=== PATIENT | female | born 1950 | race Caucasian/White ===

== ENCOUNTER 2021-12-17 22:41 | Inpatient (IN) ==
[2021-12-17] MEDS ORDERED: MECLIZINE HCL 25 MG TAB PO STA (23:37)
--- NOTE | 2021-12-17 23:42 | Emergency Department Note ---
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 Patient was on able to give an initial sample and started to drink a lot of water. Patient states that she gave a sample and then went home and when she was getting out of her car she states that she felt lightheaded and dizzy. She states that this typically occurs when her blood sugar goes low. She also states that she has been taking her medicine and has eaten today. Patient denies headache blurred vision slurred speech nausea vomiting. Patient states that the dizziness is actually improved since she presented to the department. Home Medications Medication Instructions Recorded Confirmed Type coenzyme Q10 100 mg capsule 100 mg PO QAM 12/15/19 12/17/21 History (CoQ-10) lisinopril 20 mg tablet 20 mg PO DAILY 12/15/19 12/17/21 History loratadine 10 mg tablet 10 mg PO QAM 12/15/19 12/17/21 History metformin 1,000 mg tablet 1,000 mg PO QAM 12/15/19 12/17/21 History jcigfuuy-juz-tdnsy ac 400 1 tab PO QAM 12/15/19 12/17/21 History mcg-calcium carb 500 mg-vit K1 20 mcg tablet (Women's 50 Plus Daily Formula) omega-3 fatty acids-fish oil 360 1 cap PO QPM 12/15/19 12/17/21 History mg-1,200 mg capsule (Fish Oil) pravastatin 20 mg tablet 20 mg PO QPM 12/15/19 12/17/21 History apple cider vinegar 300 mg tablet 300 mg PO BID 12/17/21 12/17/21 History glimepiride 2 mg tablet 2 mg PO QAM 12/17/21 12/17/21 History metformin 500 mg tablet 500 mg PO QPM 12/17/21 12/17/21 History Allergies Allergy/AdvReac Type Severity Reaction Status Date / Time kiwi Allergy DIFFICULTY Verified 12/17/21 23:25 SWALLOWING,"THROAT FEELS FUZZY" Penicillins Allergy RASH Verified 12/17/21 23:25 Past Med/Surg History Social History Smoking Status: Former smoker Preferred Language: Syrian Feels Safe at Home: Yes Immunizations: Past medical history includes diabetes, hypertension Review of Systems A total of 10 systems reviewed and were otherwise negative Constitutional: no fever Respiratory: no cough Cardiovascular: no chest pain Gastrointestinal: no abdominal pain Neurologic: + dizziness Physical Exam Vital Signs Vital Signs - 24 hr 12/17/21 23:15 12/18/21 00:46 12/18/21 01:00 Temperature 36.5 C Temperature Source Oral Pulse Rate 81 83 71 Respiratory Rate 12 18 13 Respiratory Effort / Characteristics Non-Labored Spontaneous Respiratory Depth Normal Blood Pressure 141/79 H 147/92 H 145/83 H Blood Pressure Mean 99 110 103 Pulse Oximetry 98 99 98 Oxygen Delivery Method Room Air Room Air Room Air Sepsis New/Unexplained Change in Mental Status N/A Sepsis Action Taken by Nursing No Action Required 12/18/21 02:00 Temperature Temperature Source Pulse Rate 69 Respiratory Rate 19 Respiratory Effort / Characteristics Respiratory Depth Blood Pressure 135/74 Blood Pressure Mean 94 Pulse Oximetry 99 Oxygen Delivery Method Room Air Sepsis New/Unexplained Change in Mental Status Sepsis Action Taken by Nursing VITAL SIGNS - Vital signs and nursing notes were reviewed. GENERAL - No acute distress. Communicates well with provider and answers questions appropriately. SKIN - Without rashes. HEAD - NC/AT. EYES - PERRL with EOMI bilaterally. Sclera anicteric. Palpebral conjunctiva pink and moist with no injection noted. EARS - No deformities of external structures noted on gross examination bilaterally. NOSE - Midline and without cyanosis. No epistaxis or purulent drainage noted. Septum midline without deviation or septal hematoma noted. MOUTH/OROPHARYNX - Without perioral cyanosis. Buccal mucosa pink Tongue midline with equal elevation of palate bilaterally. NECK - Neck with FROM. Supple to palpation. . LUNGS - Chest wall symmetric without accessory muscle use, intercostals retractions, or central cyanosis. Normal vesicular breath sounds CTA B/L. No wheezes, rales, or rhonchi appreciated. CARDIAC - RRR with S1/S2. No murmur, rubs, or gallops appreciated. ABDOMEN - Abdominal contour soft without pulsations or visible masses. BS normoactive all four quadrants. No tenderness, palpable masses, hepatosplenomegaly, or ascites noted. EXTREMITIES - No clubbing or peripheral cyanosis. No pretibial edema present. +5/5 strength noted in UE/LE bilaterally. NEUROLOGIC - Cranial nerves II through XII grossly intact. NIH 0; nonfocal PSYCH - A&Ox3 and cooperates fully with examiner. Pt is very pleasant and interacts well with examiner. Course Course Patient is resting in no distress was started on IV fluids, has a sodium of 119, there is been no seizure activity and no significant alteration in mental status at 143am Administered Medications Discontinued Medications Sodium Chloride (Nss 1000ml) 1,000 mls @ 999 mls/hr IV .Q1H1M ONE Stop: 12/18/21 02:06 Last Infusion: 12/18/21 02:37 Dose: 0 mls/hr Documented by: [id number] Admin: 12/18/21 01:11 Dose: 999 mls/hr Documented by: [id number] Meclizine HCl (Meclizine Hcl 25 Mg Tab) 25 mg PO NOW STA Stop: 12/17/21 23:38 Last Admin: 12/17/21 23:55 Dose: 25 mg Documented by: [id number] Critical Care Time Critical Care Time: Yes Total Critical Care Time: 35 Critical care time is 35 minutes for patient with dizziness and hyponatremia with the potential for status. Patient was reevaluated multiple times, consult with hospitalist, review of old records Medical Decision Making Medical Records Attestation: I reviewed the patient's medical records. Laboratory Data Attestation: I reviewed the patient's lab results. Result diagrams: 12/17/21 23:57 12/17/21 23:57 Lab Results 12/17/21 12/17/21 12/17/21 Range/Units 23:11 23:57 23:57 WBC 6.50 (4.8-10.8) K/uL RBC 4.19 L (4.2-5.4) M/uL Hgb 11.5 L (12.0-16.0) g/dL Hct 33.5 L (37-47) % MCV 80.0 (80-100) fL MCH 27.4 (25-34) pg MCHC 34.3 (32-36) g/dL RDW Std Deviation 37.4 (36.4-46.3) fL RDW Coeff of Bonnie 12.9 (11.5-14.5) % Plt Count 214 (130-400) K/uL MPV 8.7 (7.4-10.4) fL Immature Gran % (Auto) 0.2 % Neut % (Auto) 68.3 % Lymph % (Auto) 23.2 % [place] % (Auto) 6.9 % Eos % (Auto) 1.2 % Baso % (Auto) 0.2 % Neut # (Auto) 4.44 (1.4-6.5) K/uL Lymph # (Auto) 1.51 (1.2-3.4) K/uL [place] # (Auto) 0.45 (0.11-0.59) K/uL Eos # (Auto) 0.08 (0-0.5) K/uL Baso # (Auto) 0.01 (0-0.2) K/uL Immature Gran # (Auto) 0.01 (0.00-0.02) K/uL Sodium 119 L* (136-145) mmol/L Potassium 4.0 (3.5-5.1) mmol/L Chloride 86 L (98-107) mmol/L Carbon Dioxide 24 (21-32) mmol/L Anion Gap 9 (3-11) BUN 19 (6-23) mg/dl Creatinine 0.76 (0.6-1.2) mg/dl Est Cr Clr Drug Dosing 73.1 ml/min Est GFR ( Amer) 91.5 ml/min Est GFR (Non-Af Amer) 78.9 ml/min BUN/Creatinine Ratio 25.0 H (10-20) Glucose 129 H (70-99(Fasting)) mg/dl POC Glucose 166 H (70-99) mg/dl Calcium 8.7 (8.5-10.1) mg/dl Total Bilirubin 0.7 (0.2-1.0) mg/dl AST 17 (13-39) U/L ALT 11 (7-52) U/L Alkaline Phosphatase 49 (34-104) U/L Troponin I < 0.03 (0-0.04) ng/ml Total Protein 6.2 (6.0-8.3) gm/dl Albumin 4.0 (3.4-5.0) gm/dl Globulin 2.2 L (2.5-4.0) gm/dl Albumin/Globulin Ratio 1.8 (0.9-2) Imaging Data Radiologist's Impression: CT HEAD: No ICH, mass effect or edema. No evidence of acute cortical stroke. No space-occupying lesion. Mild involutional changes. Visualized sinuses and mastoid air cells are clear. Radiologist: Carlotta Salcedo MD ECG Data Attestation: I personally reviewed and interpreted this ECG as follows: Additional Comments: EKG interpreted by me sinus rhythm rate of 85 nonspecific T wave abnormality no obvious ST segment elevation or depression normal intervals normal axis MDM Narrative Medicall decision making differential diagnosis includes vertigo, metabolic derangement, dehydration, hypoglycemia; will check labs, ct Impression & Plan Acute hyponatremia, Dizziness Discharge Plan Visit Data Chief Complaint: Dizziness ED Provider: Jason Lentz Discharge Problem: Acute hyponatremia, Dizziness Patient Disposition: Admitted As Inpatient Forms Stand Alone Forms: My [facility] Prescriptions Prescriptions: No Action lisinopril 20 mg Tablet 20 mg PO DAILY RF: 0 metformin 1,000 mg Tablet 1,000 mg PO QAM RF: 0 pravastatin 20 mg Tablet 20 mg PO QPM RF: 0 loratadine 10 mg Tablet 10 mg PO QAM RF: 0 coenzyme Q10 [CoQ-10] 100 mg Capsule 100 mg PO QAM RF: 0 Women's 50 Plus Daily Formula 400 mcg-500 mg calcium-20 mcg Tablet 1 tab PO QAM RF: 0 omega-3 fatty acids-fish oil [Fish Oil] 360-1,200 mg Capsule 1 cap PO QPM RF: 0 glimepiride 2 mg tablet 2 mg PO QAM RF: 0 metformin 500 mg tablet 500 mg PO QPM RF: 0 apple cider vinegar 300 mg Tablet 300 mg PO BID RF: 0 Referrals Referrals: Silverio Castillo DO [Outside Practitioners] -
[2021-12-18 00:10] LABS: Basophils # (auto) 0.01 K/uL (0-0.2); Basophils % (auto) 0.2 %; Eosinophils # (auto) 0.08 K/uL (0-0.5); Eosinophils % (auto) 1.2 %; Hematocrit (blood only) 33.5 % (37-47); Hemoglobin 11.5 g/dL (12.0-16.0); Immature Granulocytes # (auto) 0.01 K/uL (0.00-0.02); Immature Granulocytes % (auto) 0.2 %; Lymphocytes # (auto) 1.51 K/uL (1.2-3.4); Lymphocytes % (auto) 23.2 %; Mean Corpuscular Hemoglobin 27.4 pg (25-34); Mean Corpuscular Hgb Conc 34.3 g/dL (32-36); Mean Platelet Volume 8.7 fL (7.4-10.4); Monocytes # (auto) 0.45 K/uL (0.11-0.59); Monocytes % (auto) 6.9 %; Neutrophils # (auto) 4.44 K/uL (1.4-6.5); Neutrophils % (auto) 68.3 %; Platelet Count 214 K/uL (130-400); RDW Coefficient of Variation 12.9 % (11.5-14.5); RDW Standard Deviation 37.4 fL (36.4-46.3); Red Blood Count 4.19 M/uL (4.2-5.4)
[2021-12-18 01:03] LABS: Alanine Aminotransferase 11 U/L (7-52); Albumin Globulin Ratio 1.8 (0.9-2); Alkaline Phosphatase 49 U/L (34-104); Anion Gap 9 (3-11); Aspartate Aminotransferase 17 U/L (13-39); Bilirubin,Total 0.7 mg/dl (0.2-1.0); Blood Urea Nitrogen 19 mg/dl (6-23); Calcium 8.7 mg/dl (8.5-10.1); Carbon Dioxide 24 mmol/L (21-32); Chloride 86 mmol/L (98-107); Creatinine Clr Calc Pharmacy 73.1 ml/min; Est GFR (African American) 91.5 ml/min; Est GFR (Non-African American) 78.9 ml/min; Globulin 2.2 gm/dl (2.5-4.0); Glucose 129 mg/dl (70-99(Fasting)); Sodium 119 mmol/L (136-145); Total Protein 6.2 gm/dl (6.0-8.3)
[2021-12-18] MEDS ORDERED: SODIUM CHLORIDE 0.9% 1000ML 1,000 ML IV ONE (01:06)
[2021-12-18 01:58] LABS: Troponin I < 0.03 ng/ml (0-0.04)
--- NOTE | 2021-12-18 03:21 | History & Physical Report ---
Date of Service December 18, 2021 Assessment & Plan (1) Acute hyponatremia: (2) Dizziness: (3) HTN (hypertension): (4) DM2 (diabetes mellitus, type 2): (5) HLD (hyperlipidemia): Plan: Anyi Bateman is a 71-year-old female with PMH of HTN and DM2 here for dizziness and n/v. Admitted due to hyponatremia. Hyponatremia Na at 119 on admission In the setting of consumption of large amounts of water Per chart review, patient had one prior BMP showing a sodium of 131 Per patient, she had been on salt tabs in the past but had stopped taking these due to side effects Serum osmolality low at 261, urine osmolality at 243 Urine sodium and creatinine ordered to further elucidate additional potential causes Expect that sodium is chronically low, and her excessive water intake caused an acute worsening of her hyponatremia As she does not currently have neurologic symptoms, will hold off on hypertonic saline administration Repeat BMP every 4 hours If sodium not improving on its own with avoidance of free water, can consider small hypertonic saline boluses Hypertension Hold lisinopril due to hyponatremia BP well controlled at this time DM2 Hold home medications SSI while admitted Hyperlipidemia Continue home pravastatin DVT prophylaxis: Lovenox SQ Dispo: Admit to telemetry Diet: Heart healthy, DM 2 CODE STATUS: Full History of Present Illness Primary Care Provider: Ml Sotomaoyr Anyi Bateman is a 71-year-old female with PMH of HTN and DM2 here for dizziness since this morning. 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 She says that initially patient was unable to give enough urine for the test -- according to the policies, she had to stay until she could provide said sample. As such, patient states that she drank large amounts of water for about an hour -- says she refilled a 6-8oz cup constantly. She then gave the sample and went home. Upon arrival at home, she started feeling dizzy. Says she vomited multiple times. Denies weakness, numbness, confusion, focal neuro deficits, fever, chills, abdominal pain, chest pain, palpitations, shortness of breath. Upon arrival to the ED, patient had labs significant for sodium of 119 (only prior sodium in our system showed 131 2 years ago). She had CT head showing no ICH, mass-effect, or edema. No evidence of acute cortical stroke. No space- occupying lesion. Mild involutional changes. Patient does say that at one point a few years ago she was prescribed sodium tablets by her PCP and was taking them for a while, but she decided to stop as they caused unwanted side effects for her, specifically a bad taste in her mouth. At this time, patient feels overall better. Somewhat tired, but dizziness has improved and she is no longer nauseous. Allergies Allergy/AdvReac Type Severity Reaction Status Date / Time kiwi Allergy DIFFICULTY Verified 12/17/21 23:25 SWALLOWING,"THROAT FEELS FUZZY" Penicillins Allergy RASH Verified 12/17/21 23:25 Home Medications Medication Instructions Recorded Confirmed Type coenzyme Q10 100 mg capsule 100 mg PO QAM 12/15/19 12/17/21 History (CoQ-10) lisinopril 20 mg tablet 20 mg PO DAILY 12/15/19 12/17/21 History loratadine 10 mg tablet 10 mg PO QAM 12/15/19 12/17/21 History metformin 1,000 mg tablet 1,000 mg PO QAM 12/15/19 12/17/21 History bfuynxfz-gfn-lqxuc ac 400 1 tab PO QAM 12/15/19 12/17/21 History mcg-calcium carb 500 mg-vit K1 20 mcg tablet (Women's 50 Plus Daily Formula) omega-3 fatty acids-fish oil 360 1 cap PO QPM 12/15/19 12/17/21 History mg-1,200 mg capsule (Fish Oil) pravastatin 20 mg tablet 20 mg PO QPM 12/15/19 12/17/21 History apple cider vinegar 300 mg tablet 300 mg PO BID 12/17/21 12/17/21 History glimepiride 2 mg tablet 2 mg PO QAM 12/17/21 12/17/21 History metformin 500 mg tablet 500 mg PO QPM 12/17/21 12/17/21 History Past Med/Surg History Social History Smoking Status: Never smoker Hx Alcohol Use: No Hx Substance Use: No Preferred Language: Serbian Communication Ability: Effective 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 NAD. HEENT: PERRL, EOMI. Moist mucous membranes. NECK: No JVD. No lymphadenopathy. CHEST/LUNGS: CTAB A/P. No crackles, wheezes, rales, rhonchi. HEART: RRR. No m/g/r. No carotid bruits. ABDOMEN: NT/ND, soft. BS+ x4 EXTREMITIES: No cyanosis, no clubbing, no edema SKIN: Warm and dry. No rashes or lesions. PSYCHIATRIC: Euthymic affect, no SI, no pressured speech, no hallucinations NEUROLOGIC: No FND. 5/5 strength in all 4 extremities. CN II-XII grossly intact. Results & Data Results & Data ([facility]) Vital Signs (Past 12 Hours) Vital Signs Temp Pulse Resp BP Pulse Ox 12/18/21 02:00 69 19 135/74 99 12/18/21 01:00 71 13 145/83 H 98 12/18/21 00:46 83 18 147/92 H 99 12/17/21 23:15 36.5 C 81 12 141/79 H 98 Code Status & VTE Plan VTE Prophylaxis Plan VTE Prophylaxis will be ordered: Yes Supervising Physician Co-Signing Physician Notes Attending addendum: I have physically seen this patient, have supervised the medical residents activities, and agree with the H&P unless as otherwise noted. Assessment and Plan: Hyponatremia- Sodium 119, serum osmolality 261, urine osmolality 243 Consistent with patient's report of drinking excessive amounts of water due to desire to be able to produce urine for a test at work Fluid restrict 1500 cc Sodium chloride tablets 1 g p.o. twice daily Serial BMP and magnesium levels every 4 hours Monitor for seizures, patient has had none at this point Diabetes mellitus- Hold glimepiride and Metformin Place on Accu-Cheks before meals and at bedtime with NovoLog coverage per scale Remaining orders and notations as noted Resident Activity Tracking Resident Involvement: Resident Care Provided Care Provided: Adult Hospital Medicine
[2021-12-18] MEDS ORDERED: ALUMINUM/MAGNESIUM SUSP 30 ML UDC PO PRN (04:51)
[2021-12-18] MEDS ORDERED: DC ALL PREVIOUSLY ORDERED DIABETES MEDS ONE (04:51)
[2021-12-18] MEDS ORDERED: MAGNESIUM HYDROXIDE SUSP 30 ML UDC PO PRN (04:51)
[2021-12-18] MEDS ORDERED: ACETAMINOPHEN 325 MG TAB PO PRN (04:51)
[2021-12-18] MEDS ORDERED: GLUCOSE 40% GEL 15 GM TUBE PO PRN (04:51)
[2021-12-18] MEDS ORDERED: POLYETHYLENE (MIRALAX) 17 GM PACK PO PRN (04:51)
[2021-12-18] MEDS ORDERED: GLUCOSE 10 TABS/TUBE PO PRN (04:51)
[2021-12-18] MEDS ORDERED: CARBOHYDRATES FOR HYPOGLYCEMIA PO PRN (04:51)
[2021-12-18] MEDS ORDERED: ONDANSETRON INJ 2 MG/ML 2 ML VIAL IV PRN (04:51)
[2021-12-18] MEDS ORDERED: DEXTROSE 50% 50 ML SYRINGE IV PRN (04:51)
[2021-12-18] MEDS ORDERED: GLUCAGON FOR INJ 1 MG VIAL SQ PRN (04:51)
[2021-12-18] MEDS ORDERED: ENOXAPARIN INJ 40 MG/0.4 ML SYR SQ SCH (06:00)
[2021-12-18 06:52] LABS: BUN Creatinine Ratio 22.5 (10-20); Calcium 8.5 mg/dl (8.5-10.1); Creatinine Clr Calc Pharmacy 77.3 ml/min; Est GFR (African American) 99.3 ml/min; Est GFR (Non-African American) 85.7 ml/min; Potassium 3.8 mmol/L (3.5-5.1)
--- NOTE | 2021-12-18 06:53 | CT Scan Report ---
CT SCAN OF THE BRAIN WITHOUT IV CONTRAST CLINICAL HISTORY: Dizziness. COMPARISON STUDY: No priors. TECHNIQUE: Unenhanced axial CT scan of the brain is performed from the vertex to the skull base. A do se lowering technique was utilized adhering to the principles of ALARA. CT DOSE: 614.27 mGy.cm FINDINGS: Brain parenchyma: There are age-related involutional changes noting minimal subcortical and perivent ricular microangiopathic change. There is no hemorrhage, mass effect, or evidence of acute territoria l ischemia by CT criteria. Galeano-white matter differentiation is preserved. No extra-axial fluid colle ction is seen. Ventricles, sulci, cisterns: Prominent secondary to involutional change. Intracranial vasculature: There is atherosclerotic calcification of the cavernous carotid and vertebr al arteries. Calvarium: Unremarkable. Sinuses and mastoids: The visualized paranasal sinuses are clear. The mastoid air cells are well pneu matized. Orbits: The bony orbits are grossly intact. There are bilateral ocular lens implants. IMPRESSION: There is no hemorrhage, mass effect, or evidence of acute territorial ischemia by CT mali ness. ACT 112: Negative or not required by law. Electronically signed by: Ezequiel Jimenez M.D. 12/18/2021 6:51 AM
[2021-12-18 07:07] LABS: Creatinine Urine Random 13.1 mg/dl
[2021-12-18] MEDS: INSULIN ASPART PER UNIT SC SCH ×2 (08:10→12:32)
[2021-12-18 09:00] LABS: BUN Creatinine Ratio 20.5 (10-20); Creatinine Clr Calc Pharmacy 75.2 ml/min; Est GFR (Non-African American) 82.9 ml/min; Potassium 3.6 mmol/L (3.5-5.1)
[2021-12-18] MEDS ORDERED: LORATADINE 10 MG TAB PO SCH (09:00)
[2021-12-18] MEDS ORDERED: CEROVITE ADV FORMULA TAB PO SCH (09:00)
[2021-12-18] MEDS ORDERED: INSULIN GLARGINE SOLOSTAR 100 UNITS/ML 3 ML PEN SC SCH (09:00)
[2021-12-18 13:17] LABS: BUN Creatinine Ratio 19.2 (10-20); Calcium 9.5 mg/dl (8.5-10.1); Creatinine Clr Calc Pharmacy 70.3 ml/min; Est GFR (African American) 88.6 ml/min; Est GFR (Non-African American) 76.5 ml/min
--- NOTE | 2021-12-18 16:15 | Discharge Summary ---
Date of Service December 18, 2021 Admission HPI Per Admitting Provider Anyi Bateman is a 71-year-old female with PMH of HTN and DM2 here for dizziness since this morning. 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 She says that initially patient was unable to give enough urine for the test -- according to the policies, she had to stay until she could provide said sample. As such, patient states that she drank large amounts of water for about an hour -- says she refilled a 6-8oz cup constantly. She then gave the sample and went home. Upon arrival at home, she started feeling dizzy. Says she vomited multiple times. Denies weakness, numbness, confusion, focal neuro deficits, fever, chills, abdominal pain, chest pain, palpitations, shortness of breath. Upon arrival to the ED, patient had labs significant for sodium of 119 (only prior sodium in our system showed 131 2 years ago). She had CT head showing no ICH, mass-effect, or edema. No evidence of acute cortical stroke. No space- occupying lesion. Mild involutional changes. Patient does say that at one point a few years ago she was prescribed sodium tablets by her PCP and was taking them for a while, but she decided to stop as they caused unwanted side effects for her, specifically a bad taste in her mouth. At this time, patient feels overall better. Somewhat tired, but dizziness has improved and she is no longer nauseous. Principal Diagnosis Acute hyponatremia Discharge Exam Constitutional WD/WN, vitals as above Eyes PERRL, conjunctivae normal, anicteric sclerae Neck trachea midline, no thyromegaly Respiratory normal respiratory effort, lungs clear to auscultation Cardiovascular RRR, no murmur, no edema Gastrointestinal (Abdomen) normal bowel sounds, soft, nontender, no hepatosplenomegaly Musculoskeletal Head/Neck/Chest: normocephalic and head atraumatic Extremities: strength 5/5 throughout Skin no rashes, warm and dry Neurologic deep tendon reflexes 2+ bilaterally and moves all extremities Psychiatric A+Ox3, euthymic affect Discharge Data Allergies Allergy/AdvReac Type Severity Reaction Status Date / Time kiwi Allergy DIFFICULTY Verified 12/17/21 23:25 SWALLOWING,"THROAT FEELS FUZZY" Penicillins Allergy RASH Verified 03/15/22 23:25 Consultations 12/18/21 03:10 ED Decision to Admit Stat Ordered Studies 12/17/21 23:37 CT head/brain wo con Urgent Hospital Course (1) Acute hyponatremia: (2) Dizziness: (3) HTN (hypertension): (4) DM2 (diabetes mellitus, type 2): (5) HLD (hyperlipidemia): Anyi Bateman is a 71-year-old female with PMH of HTN and DM2 here for dizziness and n/v. Admitted due to hyponatremia. Hyponatremia Na at 119 on admission, uptrending at the time of discharge In the setting of consumption of large amounts of water Per chart review, patient had one prior BMP showing a sodium of 131, patient in agreement of a chronic history of hyponatremia with baseline around 130-132 Per patient, she had been on salt tabs in the past but had stopped taking these due to bad taste -Patient placed on fluid restriction at 1500 mL Expect that sodium is chronically low, and her excessive water intake caused an acute worsening of her hyponatremia As she does not currently have neurologic symptoms, no hypertonic saline administration was done and patient's sodium was self-correcting which was evident by serum osmolality and urine osmolality Patient deemed stable and improving allowing her to be discharged home Hypertension Continue lisinopril DM2 Return to home regimen Hyperlipidemia Continue home pravastatin Dispo: Discharge home CODE STATUS: Full Total Time Total Time Spent Total Time Spent (In Minutes): 30 Discharge Plan Discharge Items Patient Disposition: Home - Self-Care Reason For Visit: DIZZINESS, VOMITING, HYPONATREMIA Discharge Diagnosis: Hyponatremia Activity: Per Instructions section Non-emergency contact: Primary Care Provider Call non-emergency contact if: you have any medication questions and your symptoms worsen Follow-up/Referrals: Ml Sotomayor PA-C [Primary Care Provider] - Diet: Regular Addtl Attending Provider Instructions: You were seen in the hospital for nausea and vomiting as well as weakness caused by hyponatremia or low sodium in the blood. This is secondary to your large consumption of water which diluted your blood resulted low sodium in your bloodstream. While you are here you were placed on a fluid restriction and your electrolytes were monitored throughout the day and your body was able to self corrected sodium by excreting the excess water through your urine. As discussed with you, you likely have a chronic syndrome release is a hormone that causes you to absorb more water as compared to others which is why your sodium runs low chronically. Because it is that you have had this issue for a long time and your sodium levels are only mildly low, we feel that there is no further action that needs to be taken at this time other than routine follow-up with your primary care provider. We recommend that you follow-up with your primary care provider within 1 week. Is been a pleasure to be a part of your care and we wish you the best in your recovery and your health. Pending Studies at Discharge: No Stand-Alone Forms: My [facility], Smoking Cessation Medications and DC Order Prescriptions: Continued lisinopril 20 mg Tablet 20 mg PO DAILY RF: 0 metformin 1,000 mg Tablet 1,000 mg PO QAM RF: 0 pravastatin 20 mg Tablet 20 mg PO QPM RF: 0 loratadine 10 mg Tablet 10 mg PO QAM RF: 0 coenzyme Q10 [CoQ-10] 100 mg Capsule 100 mg PO QAM RF: 0 Women's 50 Plus Daily Formula 400 mcg-500 mg calcium-20 mcg Tablet 1 tab PO QAM RF: 0 omega-3 fatty acids-fish oil [Fish Oil] 360-1,200 mg Capsule 1 cap PO QPM RF: 0 glimepiride 2 mg tablet 2 mg PO QAM RF: 0 metformin 500 mg tablet 500 mg PO QPM RF: 0 apple cider vinegar 300 mg Tablet 300 mg PO BID RF: 0 Discharge Orders: Discharge Order (Routine); Ordered 12/18/21 Ordered By: Darien Villanueva/Other Patient Handouts: Cholesterol Medicines, Controlling Your Cholesterol, Diabetes and Heart Disease, Managing Type 2 Diabetes, Healthy Meals for Diabetes, Eating Out When You Have Diabetes, Hyponatremia Dc, Managing Diabetes: The A1C Test Admission Data Admit Date/Time: 12/18/21 03:18 Attending Provider: Smith Collazo Admit Provider: Jose Chapman Primary Care Provider: Ml Sotomayor Other Providers: Sal Nuno Other Interventions: Discharge Summary Assessment (RN) Last Done: 12/18/21 13:42
--- NOTE | 2021-12-18 17:27 | Billing Data ---
Date of Service December 18, 2021 Coding Level of Care Code D/C DAY MANAGEMENT <30 MINS
[2021-12-18] MEDS ORDERED: PRAVASTATIN SOD 20 MG TAB PO SCH (21:00)
[2021-12-18] MEDS ORDERED: OMEGA-3 (PURIFIED FISH OIL) 1 GM CAP PO SCH (21:00)
--- NOTE | 2021-12-18 21:45 | Electrocardiogram Report ---
Test Reason : Blood Pressure : / mmHG Vent. Rate : 085 BPM Atrial Rate : 085 BPM P-R Int : 144 ms QRS Dur : 090 ms QT Int : 376 ms P-R-T Axes : 037 003 099 degrees QTc Int : 447 ms Poor data quality, interpretation may be adversely affected Normal sinus rhythm Nonspecific ST and T wave abnormality Abnormal ECG When compared with ECG of 10-MAR-2013 10:36, Inverted T waves have replaced nonspecific T wave abnormality in Lateral leads Confirmed by Yan Seth ([id number]) on 12/18/2021 9:44:41 PM Referred By: REFERRED SELF Confirmed By:Yan Seth
--- NOTE | 2021-12-19 02:27 | Billing Data ---
Date of Service December 19, 2021 Coding Level of Care Code 16341 Initial Inpt Care Lvl 3
== END 2021-12-18 14:17 | disposition home or self-care (01) | DRG 645 ==
LOC: ED 22:41 → SUATTDRO 12-18 03:18 → 2S 12-18 03:18